=== PATIENT | female | born 1930 | race Caucasian/White ===

== ENCOUNTER → 2017-04-25 15:14 | Outpatient (CLI) | payer MEDICARE ==
[2011-01-29 06:06] VITALS: BMI 19.3
== END | disposition home or self-care (01) ==
LOC: D.LABREF 15:14
DX: R33.9 Retention of urine, unspecified (principal)

== ENCOUNTER → 2017-04-26 13:10 | Outpatient (CLI) | payer MEDICARE ==
[2011-01-29 06:06] VITALS: BMI 19.3
[2017-04-26 15:45] LABS: APPEARANCE CLEAR (CLEAR); BILIRUBIN NEGATIVE (NEGATIVE); COLOR YELLOW (YELLOW); GLUCOSE NEGATIVE (NEGATIVE); KETONE NEGATIVE (NEGATIVE); NITRITE NEGATIVE (NEGATIVE); PROTEIN NEGATIVE (NEGATIVE); UROBILINOGEN NORMAL (NORMAL)
[2017-04-26 15:46] LABS: BACTERIA MODERATE /hpf (NONE SEEN); EPITHELIAL CELLS 0-5 /hpf (0-5); RED CELLS - URINE 0-5 /hpf (0-5)
== END | disposition home or self-care (01) ==
LOC: D.LABREF 13:10
PROVIDERS: Internal Medicine
DX: M54.2 Cervicalgia (principal)